=== PATIENT | male | born 1960 | race African-American/Black ===

== ENCOUNTER 2020-01-23 02:50 | Emergency (ER) | payer OTHER ==
[~2020-01-23] VITALS: Ht 177.8 cm; Wt 79.4 kg
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
--- NOTE | 2020-01-23 02:58 | NUR ---
[employer] AT BEDSIDE
[2020-01-23] MEDS ORDERED: MORPHINE SULFATE INJ 4 MG/ML DISP.SYRIN ONE ×3 (03:10→19:34)
[2020-01-23] MEDS ORDERED: ONDANSETRON HCL/PF 4 MG/2 ML VIAL ONE ×2 (03:10→19:34)
--- NOTE | 2020-01-23 03:10 | NUR ---
PT MEDICATED ORDERED.
[2020-01-23] MEDS ORDERED: ONDANSETRON HCL/PF 4 MG/2 ML VIAL IV ONE ×2 (03:30→19:30)
[2020-01-23] MEDS ORDERED: MORPHINE SULFATE INJ 2 MG/ML DISP.SYRIN IV ONE ×3 (03:30→19:30)
--- NOTE | 2020-01-23 03:45 | NUR ---
PT TRANSPORTED TO RADIOLOGY FOR CT'S.
[2020-01-23 03:50] LABS: BASOPHILS # (AUTO) 0.1 /CMM (0.0-0.2); BASOPHILS % (AUTO) 2.8 % (0.0-2.0); CALCIUM, SERUM 8.2 mg/dL (8.5-10.1); CREATININE 1.3 mg/dL (0.6-1.3); EOSINOPHILS % (AUTO) 3.8 % (0.0-6.0); HEMATOCRIT 47 % (39-51); HEMOGLOBIN 15.6 g/dL (13.5-17.5); LYMPHOCYTES # (AUTO) 1.9 /CMM (0.8-4.8); LYMPHOCYTES % (AUTO) 46.9 % (20.0-44.0); MEAN CORPUSCULAR HGB CONC 33 g/dl (31.0-36.0); MEAN CORPUSCULAR VOLUME 90 fL (80-96); MONOCYTES # (AUTO) 0.2 /CMM (0.1-1.30); MONOCYTES % (AUTO) 4.3 % (2.0-12.0); NEUTROPHILS # (AUTO) 1.7 /CMM (1.8-8.9); NEUTROPHILS % (AUTO) 42.2 % (43.0-81.0); PLATELET COUNT (AUTO) 138 /CMM (150-450); POTASSIUM 3.1 mmol/L (3.5-5.1); RED BLOOD CELL COUNT(AUTO) 5.27 MIL/uL (4.5-6.0); WHITE BLOOD COUNT (AUTO) 4.1 K/uL (4.3-11.0)
--- NOTE | 2020-01-23 04:00 | NUR ---
BACK FROM CT SCAN
[2020-01-23] MEDS ORDERED: HYDROMORPHONE 1 MG/1 ML DISP.SYRIN ONE (04:16)
--- NOTE | 2020-01-23 04:20 | NUR ---
PT W/ C/O PAIN . MD MADE AWARE W/ A VERBAL ORDER FOR DILAUDID 1MG IV. NOTED AND CARRIED OUT
--- NOTE | 2020-01-23 04:25 | NUR ---
WHITE METAL RING REMOVED FROM R RING FINGER PER ER MD ORDER WITH USE OF RING CUTTER. PT TOLERATED PROCEDURE WELL. WHITE METAL RING THROWN AWAY PER PT REQUEST WITNESSED BY [employer] OFFICER [id number].
--- NOTE | 2020-01-23 04:25 | NUR ---
Doreen patterson in EDM - 01/23/20 at 0434 by ANGELA RING REMOVED FROM R RING FINGER PER ER MD ORDER WITH USE OF RING CUTTER. PT TOLERATED PROCEDURE WELL.
--- NOTE | 2020-01-23 04:28 | NUR ---
[employer] OFFICERS REMAINS AT BEDSIDE.
[2020-01-23] MEDS ORDERED: CEFAZOLIN 1 GM in IV D5W 50 ML IV ONE (04:30)
[2020-01-23] MEDS ORDERED: POTASSIUM CHLORIDE 20 MEQ TAB.PRT.SR PO ONE ×2 (04:30→04:46)
[2020-01-23] MEDS ORDERED: HYDROMORPHONE 1 MG/1 ML DISP.SYRIN IV ONE (04:30)
[2020-01-23] MEDS ORDERED: CEFAZOLIN 1 GM ONE (04:47)
--- NOTE | 2020-01-23 04:49 | NUR ---
DR. FREEDOM MENDES PER SERENA RODRIGUEZ ORDER.
--- NOTE | 2020-01-23 05:18 | NUR ---
SPOKE WITH KATIUSKA FROM [facility], NO BEDS AVAILABLE AT THIS TIME FOR TRANSFER
--- NOTE | 2020-01-23 05:21 | NUR ---
SPOKE WITH GRIS FROM [facility], NO BEDS AVAILABLE AT THIS TIME Addendum: 01/23/20 at 0528 by KIMANI WILL FAX OVER CLINICAL INFORMATION PER REQUEST
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
--- NOTE | 2020-01-23 07:23 | NUR ---
LAB CALLED REGARDING NEGATIVE COVID RESULT.
--- NOTE | 2020-01-23 08:42 | NUR ---
PATIENT RESTING, NO DISTRESS NOTED.
--- NOTE | 2020-01-23 09:08 | NUR ---
UNABLE TO GIVE MORPHINE AT THIS TIME, DUE TO PATIENT'S LOW BLOOD PRESSURE. DR. LANGLEY MADE AWARE, WILL CONTINUE TO MONITOR.
[2020-01-23] MEDS ORDERED: IV NS 0.9% 500 ML BAG IV ONE (09:30)
[2020-01-23] MEDS ORDERED: LIDOCAINE 1%-EPI 1:100,000 20 ML VIAL ONE (09:57)
[2020-01-23] MEDS ORDERED: GELATIN SPONGE,ABSORBABLE 1 SPONGE SPONGE TP ONE (10:02)
--- NOTE | 2020-01-23 10:20 | NUR ---
DR. LANGLEY REPAIRED PATIENT'S LAC ON THE HEAD. AMAYA INTACT SURGICELL (GELFOAM) IN PLACED FOR BLEEDING AND COVERED WITH DRY DRESSING.
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
--- NOTE | 2020-01-23 12:55 | NUR ---
PATIENT IN BED, ON AND OFF SLEEPING. KEPT COMFORTABLE. NEEDS ATTENDED. WILL CONTINUE TO MONITOR. GIVEN ICE CHIPS.
--- NOTE | 2020-01-23 13:15 | NUR ---
FAXED FACESHEET TO [facility]. WILL CHECK IF THEY HAVE CAPACITY. WILL CALL BACK.
[2020-01-23] MEDS ORDERED: LORAZEPAM 1 MG TABLET ONE (13:20)
[2020-01-23] MEDS ORDERED: LORAZEPAM 1 MG TABLET PO ONE (13:30)
--- NOTE | 2020-01-23 13:31 | NUR ---
[facility] called to decline patient as they have no capacity to admit
--- NOTE | 2020-01-23 14:00 | NUR ---
FAXED CLINICALS TO [facility]. WILL CALL BACK AFTER REVIEWING THE CLINICALS.
--- NOTE | 2020-01-23 14:02 | NUR ---
CALLED [facility] FOR TRANSFER. ACCORDING TO LISA WE HAVE TO GO THROUGH THE INSURANCE TO TRANSFER FOR HIGHER LEVEL OF CARE.
--- NOTE | 2020-01-23 14:05 | NUR ---
CALLED [facility] TRANSF[facility] FOR HIGHER LEVEL OF CARE TRANSPORT. ACCORDING TO BERTHA AT TRANSFER CENTER [facility] NEED[facility] TO ACCEPT PATIENT PER MAR AND TRAUMA CRITERIA. WILL CALL BACK [facility].
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
--- NOTE | 2020-01-23 16:13 | NUR ---
PATIENT RESTING, NO DISTRESS NOTED. NEEDS ATTENDED, KEPT COMFORTABLE.
--- NOTE | 2020-01-23 17:36 | NUR ---
EWSLEY FROM [facility] STATED PATIENT MIGHT BE ABLE TO BE TRANSFERRED TO [place] OR [facility]. WILL CALL BACK FOR MORE INFO.
--- NOTE | 2020-01-23 17:49 | NUR ---
RECEIVED A CALL FROM [facility] AND TALKED TO DR. MITCHELL.
--- NOTE | 2020-01-23 18:14 | NUR ---
DR. JULIA MCKEE ACCEPTED THE PATIENT, WILL CALL BACK FOR MORE INFORMATION.
--- NOTE | 2020-01-23 18:26 | NUR ---
call from fili, accepted by dr tompkins,wants facesheet and covid result faxed to [phone], her direct line is [phone]
--- NOTE | 2020-01-23 18:42 | NUR ---
CALL FROM JACQUES,GOING TO [facility] IN [place], ROOM [address], AUTH# FOR [place] IS [id number],REPORT TO [phone]
--- NOTE | 2020-01-23 18:51 | NUR ---
ATTEMPTED TO GIVE REPORT TO [facility], PER STAFF, CALL BACK AFTER 7PM.
--- NOTE | 2020-01-23 18:53 | NUR ---
CALLED [facility] FOR BLS [employer]. ETA 90 MIN. TRIP#[phone]
--- NOTE | 2020-01-23 20:25 | NUR ---
REPORT GIVEN TO KELLIE Mcdermott [facility] [place] FOR [facility]
[2020-01-23 21:12] VITALS: BP 139/84
--- NOTE | 2020-01-23 21:27 | NUR ---
PT TRANSFERRED TO [facility] IN STABLE CONDITION
== END 2020-01-23 21:28 | disposition short-term general hospital (02) ==
LOC: ER 02:50
DX: S09.90XA Unspecified injury of head, initial encounter (principal); Y00.XXXA Assault by blunt object, initial encounter; Y92.89 Other specified places as the place of occurrence of the external cause; S62.522B Displaced fracture of distal phalanx of left thumb, initial encounter for open fracture; W54.0XXA Bitten by dog, initial encounter; S01.01XA Laceration without foreign body of scalp, initial encounter; S01.81XA Laceration without foreign body of other part of head, initial encounter; S61.432A Puncture wound without foreign body of left hand, initial encounter; S61.431A Puncture wound without foreign body of right hand, initial encounter; S61.132A Puncture wound without foreign body of left thumb with damage to nail, initial encounter; F10.10 Alcohol abuse, uncomplicated; Z20.828 Contact with and (suspected) exposure to other viral communicable diseases
CPT/HCPCS: 12002; 36415; 70450; 72125; 73090; 73130 ×2; 80048; 85025; 87426; 96365; 96375; 96376; 99285; A6403 ×2; C9803; J0690 ×2; J1170; J2270 ×3; J2405 ×2; J3490; J7040; J7060

== ENCOUNTER 2025-02-17 12:22 | Emergency (ER) | payer OTHER ==
[~2025-02-17] VITALS: Ht 162.6 cm; Wt 90.7 kg
[2025-02-17] MEDS: IV NS 0.9% 1,000 ML BAG IV ONE (12:33)
[2025-02-17 13:14] LABS: PLATELET COUNT (AUTO) 158 K/uL (150-450); RED BLOOD CELL COUNT(AUTO) 4.87 MIL/uL (4.5-6.0); RED CELL DISTRIBUTION WIDTH 18.0 % (11.5-15.0); WHITE BLOOD COUNT (AUTO) 3.6 K/uL (4.3-11.0)
[2025-02-17] MEDS ORDERED: HYDROMORPHONE 1 MG/1 ML DISP.SYRIN ONE ×2 (13:19→14:18)
[2025-02-17] MEDS: HYDROMORPHONE INJ 2 MG/ML DISP.SYRIN IV ONE (13:24)
[2025-02-17 13:27] LABS: CALCIUM, SERUM 8.5 mg/dL (8.5-10.1); CREATININE 0.8 mg/dL (0.6-1.3); SODIUM SERUM 142.0 mmol/L (136-145); UREA NITROGEN, BLOOD 20.0 mg/dL (7-18)
[2025-02-17 13:28] LABS: ASPARTATE AMINOTRANSFERASE 32.0 U/L (15-37); TOTAL PROTEIN, SERUM 7.8 g/dL (6.4-8.2)
[2025-02-17] MEDS ORDERED: TAMS-12 PO ×2 (14:16→16:07)
[2025-02-17] MEDS ORDERED: ATOR40TA PO (14:16)
[2025-02-17] MEDS ORDERED: SACU1TAB7 PO (14:16)
[2025-02-17] MEDS ORDERED: TRAZ-257 PO (14:16)
[2025-02-17] MEDS ORDERED: SPIR25TA6 PO (14:16)
[2025-02-17] MEDS ORDERED: GABA300C PO (14:16)
[2025-02-17] MEDS ORDERED: CARV25TA2 PO (14:16)
[2025-02-17] MEDS: HYDROMORPHONE 1 MG/1 ML DISP.SYRIN IV ONE ×2 (14:21→15:07)
[2025-02-17 15:39] LABS: APPEARANCE,URINE CLEAR (CLEAR); BLOOD, URINE Large Ery/uL (NEGATIVE); LEUKOCYTE ESTERASE ,URINE Negative (NEGATIVE); NITRITE, URINE NEGATIVE (NEGATIVE); UGLUCOSE Negative (NEGATIVE)
[2025-02-17 15:43] LABS: ADD URINE CULTURE YES; SQUAMOUS EPITHELIAL CELL,UR Rare /HPF (None Seen); URINE AMORPHOUS URATE Few /HPF (None Seen)
[2025-02-17] MEDS ORDERED: TAMSULOSIN 0.4 MG CAP.SR.24H ONE (15:55)
[2025-02-17] MEDS: TAMSULOSIN 0.4 MG CAP.SR.24H PO SCH (16:02)
[2025-02-17] MEDS ORDERED: CEPH-570 PO (16:07)
[2025-02-17 16:23] VITALS: BP 148/87; TEMP 98.4; O2SAT 96
== END 2025-02-17 16:23 | disposition home or self-care (01) ==
LOC: ER 12:30 → UNDOADMIN 15:06 → MEDSG1 15:06 → ER 16:23 → UNDODISIN 17:47
DX: R10.9 Unspecified abdominal pain (principal); R33.9 Retention of urine, unspecified; K59.00 Constipation, unspecified; I10 Essential (primary) hypertension
CPT/HCPCS: 99285; 74176; 96374; 96361; 51702; 85025; 80048; 87086; 83690; 80076; 81001; 36415; 96376; J1171 ×2; G0378